=== PATIENT | female | born 1950 | race Caucasian/White ===

== ENCOUNTER → 2017-04-27 | Outpatient (CLI) | payer BC ==
[2017-04-27 09:07] LABS: INR 1.1 (<1.2); Prothrombin Time 11.4 sec (9.0-12.0)
[2017-04-27 09:15] LABS: Calcium 9.7 mg/dL (8.4-10.2); Potassium 4.7 mmol/L (3.5-5.1); Total Bilirubin 0.7 mg/dL (0.2-1.3); Total Protein 7.7 g/dL (6.3-8.2)
[2017-04-27 09:27] LABS: Basophils % (A) 1 %; CH 29.5; CHCM 33.3; Eosinophils # (A) 0.1 k/uL (0-0.7); Eosinophils % (A) 3 %; HCT 37.2 % (34.0-46.0); HGB 12.6 gm/dL (11.4-16.0); Luc # (Auto) 0.07; Luc % (Auto) 2; Lymphocytes # (A) 0.7 k/uL (1.0-4.8); Lymphocytes % (A) 21 %; MCH 30.3 pg (25.0-35.0); MCV 89.1 fL (80.0-100.0); Mean Platelet Volume 8.8; Monocytes # (A) 0.2 k/uL (0-1.0); Monocytes % (A) 5 %; Neutrophils # (A) 2.3 k/uL (1.3-7.7); Neutrophils % (A) 69 %; RBC 4.18 m/uL (3.80-5.40); RDW 13.6 % (11.5-15.5); WBC 3.4 k/uL (3.8-10.6); WBC (Perox) 3.66
[2017-04-27 10:01] LABS: Manual Review Performed
[2017-04-27 10:02] LABS: RBC Morphology Normal
== END | disposition home or self-care (01) ==
LOC: LABWHC1 08:31
PROVIDERS: ATTEND Internal Medicine Gastroenterology
DX: K74.60 Unspecified cirrhosis of liver (principal)
CPT/HCPCS: 36415; 80053; 82105; 85025; 85610

== ENCOUNTER → 2018-05-30 | Outpatient (CLI) | payer BC ==
--- NOTE | 2018-05-30 09:23 | US ---
EXAMINATION TYPE: US portal vein DATE OF EXAM: 05/30/2018 COMPARISON: Liver MRI 09/24/2016, CT 07/27/2016, US 05/20/2014 CLINICAL HISTORY: K74.60 Unspecified cirrhosis of liver. EXAM MEASUREMENTS: Liver Length: 14.4 cm Gallbladder Wall: 0.2 cm CBD: 0.5 cm Right Kidney: 10.3 x 4.8 x 5.5 cm ANATOMY: Pancreas: Obscured by bowel gas, visualized portions wnl Liver: Normal size and contour. No masses visualized Color flow patency within the portal vein: Yes Portal Vein Flow: Hepatopetal Gallbladder: Stone visualized Evidence for sonographic Prince's sign: No CBD: wnl Right Kidney: No hydronephrosis, no cystic or solid mass visualized Ascites noted? No IMPRESSION: Patent portal vein, hepatopedal flow. Cholelithiasis. Limited exam.
== END | disposition home or self-care (01) ==
LOC: RADUSWWP 08:03
PROVIDERS: ATTEND Internal Medicine Gastroenterology
DX: K74.60 Unspecified cirrhosis of liver (principal)
CPT/HCPCS: 93976

== ENCOUNTER → 2018-09-07 | Outpatient (CLI) | payer BC ==
--- NOTE | 2018-09-07 08:18 | MR ---
EXAMINATION TYPE: MR shoulder LT wo con DATE OF EXAM: 09/07/2018 COMPARISON: This radiograph dated 03/08/2016 HISTORY: Unspecified Rot Cuff Tear or Rupture of Left Shoulder TECHNIQUE: Multiplanar, multisequence imaging of the left shoulder is performed without contrast. FINDINGS: Rotator Cuff: There is a complete tear of the supraspinatus with 3.8 cm retraction of the myotendinou s junction and distal frayed fibers. There is narrowing of the subacromial space measuring 1.5 mm bet ween the acromion and high riding humeral head. There is undulation of the retracted supraspinatus te ndon and muscular atrophy. There is a 0.5 x 0.8 cm intrasubstance tear of the subscapularis at the myotendinous junction and par tial-thickness 1.2 x 1.4 cm bursal surface tear also at the myotendinous junction. There is fraying o f the distal fibers with punctate perforations and signal heterogeneity indicative of moderate tendin opathy. Increased signal seen of the distal tendon and insertional fibers of the teres minor compatible with mild tendinopathy. The subscapularis appears of unremarkable signal and muscular volume. Acromioclavicular Joint: There is mild acromioclavicular arthropathy with marginal osteophyte, capsul ar hypertrophy and joint space narrowing. Glenohumeral Joint: There is a high riding humeral head secondary to the rotator cuff tear. There is mild glenohumeral joint space narrowing and small marginal osteophytes of the humeral head compatible with mild arthropathy. The inferior posterior humeral head has a concave appearance without pulmonar y edema likely sequela of prior Hill-Sachs deformity. Labrum: There is a detached tear of the anterior inferior glenoid labrum with 5 mm adjacent paralabra l cyst. Biceps Tendon: Only few frayed fibers versus chronic blood products are seen within the bicipital precious ove. There appears to be a complete tear of the long head of the biceps with frayed fibers seen more distally. Bone marrow signal: No focal abnormal marrow signal is appreciated. Other: There is a small noncomplex joint effusion of the shoulder. IMPRESSION: 1. Complete tear of the supraspinatus with 3.8 cm retraction, undulation of the myotendinous junction and distal frayed fibers, and muscular atrophy. 2. Complete tear of the long head of the biceps with only a few diminutive fibers remaining in the bi cipital groove versus chronic blood products. 3. Detached tear of the anterior inferior glenoid labrum with associated 5 mm paralabral cyst. 4. 5 x 8 mm intrasubstance tear of the infraspinatus and partial-thickness bursal surface 1.2 x 1.4 c m tear of the infraspinatus with associated moderate tendinopathy. 5. Mild tendinopathy of the teres minor. 6. Small noncomplex joint effusion. 7. High riding humeral head from the previously discussed rotator cuff tear with mild glenohumeral ar thropathy and acromioclavicular arthropathy. 8. Posterior humeral head deformity likely sequela of prior Hill-Sachs impaction fracture with no cur rent bone marrow edema.
== END ==
LOC: RADMRIMAIN 06:34
PROVIDERS: ATTEND Internal Medicine Rheumatology
DX: M75.122 Complete rotator cuff tear or rupture of left shoulder, not specified as traumatic (principal); S43.492A Other sprain of left shoulder joint, initial encounter; S46.812A Strain of other muscles, fascia and tendons at shoulder and upper arm level, left arm, initial encounter; M75.92 Shoulder lesion, unspecified, left shoulder; M25.412 Effusion, left shoulder; M19.012 Primary osteoarthritis, left shoulder; M21.922 Unspecified acquired deformity of left upper arm

== ENCOUNTER → 2018-11-16 | Outpatient (CLI) | payer BC ==
[2018-11-16 08:34] LABS: Basophils % (A) 1 %; Eosinophils # (A) 0.1 k/uL (0-0.7); Eosinophils % (A) 3 %; HCT 38.1 % (34.0-46.0); HGB 12.1 gm/dL (11.4-16.0); Lymphocytes # (A) 0.6 k/uL (1.0-4.8); Lymphocytes % (A) 17 %; MCH 29.4 pg (25.0-35.0); MCHC 31.8 g/dL (31.0-37.0); MCV 92.5 fL (80.0-100.0); Mean Platelet Volume 8.1; Monocytes # (A) 0.3 k/uL (0-1.0); Monocytes % (A) 7 %; Neutrophils # (A) 2.5 k/uL (1.3-7.7); Neutrophils % (A) 70 %; RBC 4.12 m/uL (3.80-5.40); RDW 13.4 % (11.5-15.5); WBC 3.6 k/uL (3.8-10.6)
[2018-11-16 08:51] LABS: INR 0.9 (<1.2); Prothrombin Time 10.1 sec (9.0-12.0)
[2018-11-16 10:22] LABS: Platelet Count 77 k/uL (150-450)
[2018-11-16 16:51] LABS: Albumin 4.2 g/dL (3.80-4.90); Albumin/Globulin Ratio 1.75 (1.60-3.17); Anion Gap 9.9 mmol/L (4.00-12.00); Calcium 9.2 mg/dL (8.7-10.3); Carbon Dioxide 28.1 mmol/L (21.6-31.8); Globulin 2.4 g/dL (1.6-3.3); Potassium 4.2 mmol/L (3.5-5.5); Total Bilirubin 0.6 mg/dL (0.2-1.2); Total Protein 6.6 g/dL (6.2-8.2)
== END | disposition home or self-care (01) ==
LOC: LABWHC1 07:27
PROVIDERS: ATTEND Internal Medicine Gastroenterology
DX: K74.60 Unspecified cirrhosis of liver (principal)
CPT/HCPCS: 36415; 80053; 82105; 85025; 85610

== ENCOUNTER 2019-04-19 21:32 | Emergency (ER) | payer BC ==
[2019-04-19 21:54] VITALS: BP 160/94; PULSE 86; RESP 16; TEMP 98.4
[2019-04-19] MEDS ORDERED: ACET/COD 300 MG/30 MG STARTER PACK 6 TAB BTL PO STA (23:34)
--- NOTE | 2019-04-19 23:34 | ED ---
General Adult HPI - General Chief complaint: Dental/Oral Stated complaint: Dental/Jaw pain Time Seen by Provider: 04/19/19 22:18 Source: patient, RN notes reviewed, old records reviewed Mode of arrival: ambulatory Limitations: no limitations - History of Present Illness Initial comments: 68-year-old female patient presents ED with right dental pain. Patient reports that she was chewing on a cookie and started drinking pain in her jaw. Patient denies any other complaints at this time. Denies any chest pain shortness with abdominal pain, nausea vomiting or diarrhea. Systemic: Pt denies fatigue, fever/chills, rash. Pt denies weakness, night sweats, weight loss. Neuro: Pt denies headache, visual disturbances, syncope or pre-syncope. HEENT: Pt denies ocular discharge or irritation, otalgia, rhinorrhea, pharyngitis or notable lymphadenopathy. Cardiopulmonary: Pt denies chest pain, SOB, heart palpitations, dyspnea on exertion. Abdominal/GI: Pt denies abdominal pain, n/v/d. : Pt denies dysuria, burning w/ urination, frequency/urgency. Denies new onset urinary or bowel incontinence. MSK: Pt denies myalgia, loss of strength or function in extremities. Neuro: Pt denies new onset weakness, paresthesias. - Related Data Home Medications Medication Instructions Recorded Confirmed Acetaminophen [Tylenol] 1,000 mg PO DAILY PRN 03/08/16 07/06/16 Etanercept [Enbrel] 50 mg SQ BOLES 03/08/16 07/06/16 Folic Acid 1 mg PO DAILY 03/08/16 07/06/16 Levothyroxine Sodium [Synthroid] 112 mcg PO DAILY 03/08/16 07/06/16 Simvastatin [Zocor] 20 mg PO HS 03/08/16 07/06/16 metFORMIN HCL [Glucophage] 500 mg PO AC-TID 07/06/16 07/06/16 Previous Rx's Medication Instructions Recorded Penicillin V Potassium [Pen Vee K] 500 mg PO QID 4 Days #28 tablet 04/19/19 Allergies Allergy/AdvReac Type Severity Reaction Status Date / Time shellfish derived [Shellfish] Allergy Anaphylaxis Verified 04/19/19 21:54 Review of Systems ROS Statement: Those systems with pertinent positive or pertinent negative responses have been documented in the HPI. ROS Other: All systems not noted in ROS Statement are negative. Past Medical History Past Medical History: Asthma, Diabetes Mellitus, Hyperlipidemia, Hypertension, Rheumatoid Arthritis (RA), Thyroid Disorder Additional Past Medical History / Comment(s): anemia, lt shoulder pain, History of Any Multi-Drug Resistant Organisms: None Reported Past Surgical History: Breast Surgery, Orthopedic Surgery, Tubal Ligation Additional Past Surgical History / Comment(s): rt shoulder, Past Anesthesia/Blood Transfusion Reactions: Previous Problems w/ Anesthesia Additional Past Anesthesia/Blood Transfusion Reaction / Comment(s): difficulty breathing Past Psychological History: No Psychological Hx Reported Smoking Status: Never smoker Past Alcohol Use History: None Reported Past Drug Use History: None Reported - Past Family History Son(s) Family Medical History: Diabetes Mellitus Mother Family Medical History: Cancer Additional Family Medical History / Comment(s): lymphoma General Exam - General Exam Comments Initial Comments: Constitutional: NAD, AOX3, Pt has pleasant affect. HEENT: NC/AT, trachea midline, neck supple, no lymphadenopathy. Posterior pharynx non erythematous, without exudates. External ears appear normal, without discharge. Mucous membranes moist. Eyes PERRLA, EOM intact. There is no scleral icterus. No pallor noted. Dental exam revealed moderate dentition, no drainable abscess, erythema or discharge noted. Cardiopulmonary: RRR, no murmurs, rubs or gallops, no JVD noted. Lungs CTAB in anterior and posterior roach. No peripheral edema. Abdominal exam: Abdomen soft and non-distended. Abdomen non-tender to palpation in all 4 quadrants. Bowel sounds active in LLQ. No hepatosplenomegaly. No ecchymosis Neuro: CN II-XII grossly intact. No nuchal rigidity. No raccon eyes, no hutton sign, no hemotympanum. No cervical spinal tenderness. MSK: No posterior calf tenderness bilaterally, homans sign negative bilaterally. Posterior tibialis and radial pulse +2 bilaterally. Sensation intact in upper and lower extremities. Full active ROM in upper and lower extremities, 5/5 stregnth. Limitations: no limitations Course Vital Signs 04/19/19 21:51 Temperature 98.4 F Pulse Rate 86 Respiratory 16 Rate Blood Pressure 160/94 O2 Sat by Pulse 95 Oximetry Medical Decision Making - Medical Decision Making 68 old female patient presents ED with dental pain after chweing cookie. Patient vital signs stable , afebrile. Physical exam revealed moderate dentition. Patient will be discharged with Tylenol 3 starter pack, penicillin. Patient will follow-up with dentist in 1-2 days. Patient return to ER if condition worsens. Case discussed with Dr. Laboy. Disposition Clinical Impression: Pain, dental Disposition: HOME SELF-CARE Condition: Stable Instructions (If sedation given, give patient instructions): Toothache (ED) Additional Instructions: Patient to adhere to previously discussed treatment plan and will take medicat ion(s) as directed. Patient to follow up with PCP in 1-2 days. Patient to return to ED if symptoms do not improve. Follow-up with primary care provider and dentist in 1-2 days. Return to ER if condition worsens in any way. Prescriptions: Penicillin V Potassium [Pen Vee K] 500 mg PO QID 4 Days #28 tablet Is patient prescribed a controlled substance at d/c from ED?: No Referrals: Silvio Munson MD [Primary Care Provider] - 1-2 days
== END 2019-04-19 23:47 | disposition home or self-care (01) ==
LOC: EC 21:32
DX: K08.89 Other specified disorders of teeth and supporting structures (principal); E11.9 Type 2 diabetes mellitus without complications; D64.9 Anemia, unspecified; E78.5 Hyperlipidemia, unspecified; I10 Essential (primary) hypertension; M06.9 Rheumatoid arthritis, unspecified; E07.9 Disorder of thyroid, unspecified; Z79.84 Long term (current) use of oral hypoglycemic drugs; Z79.890 Hormone replacement therapy; Z79.899 Other long term (current) drug therapy; Z91.013 Allergy to seafood
CPT/HCPCS: 99283

== ENCOUNTER → 2019-05-15 | Outpatient (CLI) | payer BC ==
[2019-05-15 17:30] LABS: Basophils % (A) 1 %; Eosinophils # (A) 0.1 k/uL (0-0.7); Eosinophils % (A) 2 %; HCT 33.6 % (34.0-46.0); HGB 11.4 gm/dL (11.4-16.0); Lymphocytes % (A) 25 %; MCH 29.5 pg (25.0-35.0); MCHC 33.9 g/dL (31.0-37.0); MCV 87.1 fL (80.0-100.0); Mean Platelet Volume 8.3; Monocytes # (A) 0.3 k/uL (0-1.0); Monocytes % (A) 6 %; Neutrophils # (A) 2.5 k/uL (1.3-7.7); Neutrophils % (A) 63 %; Platelet Count 104 k/uL (150-450); RBC 3.86 m/uL (3.80-5.40); RDW 14.4 % (11.5-15.5)
[2019-05-15 17:36] LABS: Prothrombin Time 10.7 sec (9.0-12.0)
[2019-05-16 01:01] LABS: African American GFR (CKD) 60.6 (60.0-200.0); Albumin 4.5 g/dL (3.80-4.90); Albumin/Globulin Ratio 1.88 (1.60-3.17); Anion Gap 11.2 mmol/L (4.00-12.00); BUN/Creat Ratio 20.91 Ratio (12.00-20.00); Calcium 9.2 mg/dL (8.7-10.3); Carbon Dioxide 25.8 mmol/L (21.6-31.8); Globulin 2.4 g/dL (1.6-3.3); Potassium 4.4 mmol/L (3.5-5.5); Total Bilirubin 0.4 mg/dL (0.2-1.2); Total Protein 6.9 g/dL (6.2-8.2)
== END | disposition home or self-care (01) ==
LOC: LABWHC1 16:39
PROVIDERS: ATTEND Internal Medicine Gastroenterology
DX: K74.60 Unspecified cirrhosis of liver (principal)
CPT/HCPCS: 36415; 80053; 82105; 85025; 85610

== ENCOUNTER → 2020-06-02 | Outpatient (CLI) | payer BC ==
--- NOTE | 2020-06-02 07:30 | US ---
EXAMINATION TYPE: US liver DATE OF EXAM: 06/02/2020 COMPARISON: US 05/30/18, CT 07/27/16 CLINICAL HISTORY: K74.60 Unspecifed cirrhosis of liver. EXAM MEASUREMENTS: Liver Length: 15.0 cm Gallbladder Wall: 0.2 cm CBD: 0.3 cm Right Kidney: 10.7 x 5.2 x 4.7 cm Pancreas: No masses seen Liver: No masses seen Gallbladder: Small gallstones (as seen previously) Evidence for sonographic Prince's sign: No CBD: wnl Right Kidney: No hydronephrosis or masses seen IMPRESSION: Small gallstones noted.
== END | disposition home or self-care (01) ==
LOC: RADUSWWP 06:55
PROVIDERS: ATTEND Internal Medicine Gastroenterology
DX: K80.20 Calculus of gallbladder without cholecystitis without obstruction (principal); K74.60 Unspecified cirrhosis of liver
CPT/HCPCS: 76705

== ENCOUNTER → 2021-05-31 | Outpatient (CLI) | payer MEDICARE ==
--- NOTE | 2021-05-31 08:29 | US ---
EXAMINATION TYPE: US abdomen limited DATE OF EXAM: 05/31/2021 COMPARISON: US's CLINICAL HISTORY: K74.60 UNSPECIFIED CIRRHOSIS OF LIVER. EXAM MEASUREMENTS: Liver Length: 13.1 cm Gallbladder Wall: 0.2 cm CBD: 0.4 cm Right Kidney: 10.1 x 4.8 x 5.8 cm Pancreas: visualized portions wnl Liver: wnl Gallbladder: tiny stone noted Evidence for sonographic Prince's sign: No CBD: wnl Right Kidney: No hydronephrosis or masses seen IMPRESSION: Small incidental gallstone.
== END | disposition home or self-care (01) ==
LOC: RADUSWWP 07:34
PROVIDERS: ATTEND Internal Medicine Gastroenterology
DX: K74.60 Unspecified cirrhosis of liver (principal); K80.20 Calculus of gallbladder without cholecystitis without obstruction
CPT/HCPCS: 76705

== ENCOUNTER 2021-11-25 17:00 | Emergency (ER) | payer MEDICARE ==
[2021-11-25 17:14] VITALS: PULSE 63; RESP 18; TEMP 98.7
[2021-11-25] MEDS ORDERED: ONDANSETRON 4 MG/2 ML VIAL IVP STA (17:31)
[2021-11-25] MEDS ORDERED: SODIUM CHLORIDE 0.9% 500 ML 500 ML IV STA (17:31)
--- NOTE | 2021-11-25 17:33 | ED ---
General Adult HPI - General Chief complaint: Fall Stated complaint: Fall Time Seen by Provider: 11/25/21 17:06 Source: patient, EMS Mode of arrival: EMS Limitations: no limitations - History of Present Illness Initial comments: Dictation was produced using [employer] dictation software. please excuse any grammatical, word or spelling errors. Chief Complaint: This 71-year-old female presents to emergency department after fall History of Present Illness: Patient is a 71-year-old female she suffered a fall 50 minutes prior to arrival. Patient states she slipped on ice during the bad weather conditions. She states she fell forward landing on her left knee and hitting her face. She denies any loss of consciousness however that was unwitnessed. Patient has not taken anticoagulation medications. EMS was called patient is brought to the ER. She was placed in a cervical collar. Patient weighs of knee pain, facial pain and neck pain. The ROS documented in this emergency department record has been reviewed and confirmed by me. Those systems with pertinent positive or negative responses have been documented in the HPI. All other systems are other negative and/or noncontributory. PHYSICAL EXAM: General Impression: Alert and oriented x3, not in acute distress HEENT: Ecchymosis to the left eyebrow ridge, extra-ocular movements intact, pupils equal and reactive to light bilaterally, mucous membranes moist, no nasal septal hematoma Cardiovascular: Heart regular rate and rhythm Chest: Able to complete full sentences, no retractions, no tachypnea Abdomen: abdomen soft, non-tender, non-distended, no organomegaly Musculoskeletal: Pulses present and equal in all extremities, no peripheral edema, abrasion to the left anterior knee with palpatory tenderness over the anterior proximal tibia Motor: no focal deficits noted Neurological: CN II-XII grossly intact, no focal motor or sensory deficits noted Skin: Intact with no visualized rashes Psych: Normal affect and mood ED course: 71-year-old female presents emergency department after fall. She has had trauma and left knee trauma. Patient is not an adequate evaluation medications. Fall was ground-level. Vital signs upon arrival are within acceptable limits. Return evaluation obtained. CBC, cardiac panel, metabolic panel is within acceptable limits. There is slight degree of mild acidosis without any anion gap. Computed tomography scan of the face no facial fractures there does appear to be a left frontal periorbital scalp hematoma. Computed tomography scan of the brain shows large cranial processes. Computed tomography scan of the C- spine shows no acute traumatic issues. Chest x-ray is nonacute, pelvis x-rays negative. Knee x-ray shows no acute pathology. There does appear to be patella femoral osteotomy changes. She is reevaluated at 7:50 PM. She is feeling much better. She did have some nausea 30 minutes prior and was given Reglan. She feels well to go home. Daughter is at the bedside and will monitor patient overnight. Advised follow- up with primary care doctor. Patient given starter pack for Zofran and Tylenol number threes. EKG interpretation: Ventricular rate 72, sinus rhythm,. 156, QRS eyes, QTC 428. No HI prolongation, no QTC prolongation, no ST or T-wave changes noted. EKG compared to 03/08/2016 showing no changes. Overall, this EKG is unremarkable - Related Data Home Medications Medication Instructions Recorded Confirmed Acetaminophen [Tylenol] 1,000 mg PO DAILY PRN 03/08/16 07/06/16 Etanercept [Enbrel] 50 mg SQ BOLES 03/08/16 07/06/16 Folic Acid 1 mg PO DAILY 03/08/16 07/06/16 Levothyroxine Sodium [Synthroid] 112 mcg PO DAILY 03/08/16 07/06/16 Simvastatin [Zocor] 20 mg PO HS 03/08/16 07/06/16 metFORMIN HCL [Glucophage] 500 mg PO AC-TID 07/06/16 07/06/16 Previous Rx's Medication Instructions Recorded Penicillin V Potassium [Pen Vee K] 500 mg PO QID 4 Days #28 tablet 04/19/19 Allergies Allergy/AdvReac Type Severity Reaction Status Date / Time shellfish derived [Shellfish] Allergy Anaphylaxis Verified 04/19/19 21:54 Review of Systems ROS Statement: Those systems with pertinent positive or pertinent negative responses have been documented in the HPI. ROS Other: All systems not noted in ROS Statement are negative. Past Medical History Past Medical History: Asthma, Diabetes Mellitus, Hyperlipidemia, Hypertension, Rheumatoid Arthritis (RA), Thyroid Disorder Additional Past Medical History / Comment(s): anemia, lt shoulder pain, History of Any Multi-Drug Resistant Organisms: None Reported Past Surgical History: Breast Surgery, Orthopedic Surgery, Tubal Ligation Additional Past Surgical History / Comment(s): rt shoulder, Past Anesthesia/Blood Transfusion Reactions: Previous Problems w/ Anesthesia Additional Past Anesthesia/Blood Transfusion Reaction / Comment(s): difficulty breathing Past Psychological History: No Psychological Hx Reported Past Alcohol Use History: None Reported Past Drug Use History: None Reported - Past Family History Son(s) Family Medical History: Diabetes Mellitus Mother Family Medical History: Cancer Additional Family Medical History / Comment(s): lymphoma General Exam Limitations: no limitations Course Vital Signs 11/25/21 17:05 Temperature 98.7 F Pulse Rate 63 Respiratory 18 Rate Blood Pressure 176/99 O2 Sat by Pulse 100 Oximetry Medical Decision Making - Lab Data Result diagrams: 11/25/21 17:49 11/25/21 17:49 Lab Results 11/25/21 11/25/21 11/25/21 Range/Units 17:49 17:49 17:49 WBC 6.5 (3.8-10.6) k/uL RBC 4.39 (3.80-5.40) m/uL Hgb 13.6 (11.4-16.0) gm/dL Hct 39.9 (34.0-46.0) % MCV 90.9 (80.0-100.0) fL MCH 31.0 (25.0-35.0) pg MCHC 34.1 (31.0-37.0) g/dL RDW 13.4 (11.5-15.5) % Plt Count 97 L (150-450) k/uL MPV 9.2 Neutrophils % 77 % Lymphocytes % 14 % Monocytes % 5 % Eosinophils % 2 % Basophils % 0 % Neutrophils # 5.0 (1.3-7.7) k/uL Lymphocytes # 0.9 L (1.0-4.8) k/uL Monocytes # 0.3 (0-1.0) k/uL Eosinophils # 0.1 (0-0.7) k/uL Basophils # 0.0 (0-0.2) k/uL PT 10.5 (9.0-12.0) sec INR 1.0 (<1.2) APTT 22.6 (22.0-30.0) sec Sodium 139 (137-145) mmol/L Potassium 4.0 (3.5-5.1) mmol/L Chloride 108 H (98-107) mmol/L Carbon Dioxide 19 L (22-30) mmol/L Anion Gap 12 mmol/L BUN 28 H (7-17) mg/dL Creatinine 1.19 H (0.52-1.04) mg/dL Est GFR (CKD-EPI)AfAm 54 (>60 ml/min/1.73 sqM) Est GFR (CKD-EPI)NonAf 47 (>60 ml/min/1.73 sqM) Glucose 136 H (74-99) mg/dL Calcium 9.8 (8.4-10.2) mg/dL Disposition Clinical Impression: Fall Disposition: HOME SELF-CARE Condition: Good Instructions (If sedation given, give patient instructions): Fall Prevention for Older Adults (ED) Is patient prescribed a controlled substance at d/c from ED?: No Referrals: Silvio Munson MD [Primary Care Provider] - 1-2 days
[2021-11-25 17:58] LABS: Basophils % (A) 0 %; Eosinophils # (A) 0.1 k/uL (0-0.7); Eosinophils % (A) 2 %; HCT 39.9 % (34.0-46.0); HGB 13.6 gm/dL (11.4-16.0); Lymphocytes # (A) 0.9 k/uL (1.0-4.8); Lymphocytes % (A) 14 %; MCHC 34.1 g/dL (31.0-37.0); MCV 90.9 fL (80.0-100.0); Mean Platelet Volume 9.2; Monocytes # (A) 0.3 k/uL (0-1.0); Monocytes % (A) 5 %; Neutrophils % (A) 77 %; RBC 4.39 m/uL (3.80-5.40); RDW 13.4 % (11.5-15.5); WBC 6.5 k/uL (3.8-10.6)
[2021-11-25 17:59] LABS: Platelet Count 97 k/uL (150-450)
[2021-11-25 18:09] LABS: Partial Thromboplastin Time 22.6 sec (22.0-30.0); Prothrombin Time 10.5 sec (9.0-12.0)
[2021-11-25 18:20] LABS: Calcium 9.8 mg/dL (8.4-10.2)
--- NOTE | 2021-11-25 18:57 | CT ---
EXAMINATION TYPE: CT brain cspine wo con, CT facial bones wo con CT DLP: 1093.1 mGycm, Automated exposure control for dose reduction was used. DATE OF EXAM: 11/25/2021 6:15 PM COMPARISON: None.. CLINICAL INDICATION:Female, 71 years old with history of fall; TECHNIQUE: Brain: Multiple axial CT images of the brain were obtained without IV contrast. Cspine: Axial CT images from the skull base to the inferior aspect of T2 we obtained without intraven ous contrast. Coronal and sagittal reformatted images were also reviewed. Facial bone: Multiple axial CT see the facial bones were obtained without IV contrast. The plan refor mats were submitted for review. FINDINGS: Brain: Extra-axial spaces: No abnormal extra-axial fluid collections. Ventricular system: Within normal limits Cerebral parenchyma: No acute intraparenchymal hemorrhage or mass effect. The severino-white junction is well differentiated. Cerebellum: Unremarkable. Mass effect: No evidence of midline shift. Intracranial vasculature: unremarkable Soft tissues: Scalp hematoma measuring 49 x 12 x 29 mm superior to the left superior orbital ridge ar ound the left eye. Calvarium/osseous structures: No depressed skull fracture. Paranasal sinuses and mastoid air cells: Clear. Visualized orbits: Orbital contents are intact. Cervical spine: Fracture: None. Osseous structures: Multilevel degenerative disc disease changes with endplate spurring and disc oste ophyte complex's. Vertebral alignment: Within normal limits. Spinal canal/Neural Foramina: No evidence of significant spinal canal narrowing. No evidence of signi ficant neural foramina narrowing. Neck soft tissues: Prevertebral soft tissues are within normal limits. Other: The airway is patent. The lung apices are clear. CT Facial: There is no evidence of facial fracture, subluxation, dislocation, or significant soft tissue swellin g. The orbital contents are unremarkable.The temporal-mandibular joints appear symmetric. The visuali zed portion of the paranasal sinuses appear clear. IMPRESSION: 1. No acute intracranial process or facial bone fracture. 2. Left frontal and periorbital scalp hematoma. 3. No evidence of cervical spine fracture. 4. Mild multilevel degenerative disc disease.
--- NOTE | 2021-11-25 19:00 | XR ---
EXAMINATION TYPE: XR chest 1V portable DATE OF EXAM: 11/25/2021 6:14 PM COMPARISON:Chest radiographs from 03/08/2016 TECHNIQUE: XR chest 1V portable Frontal view of the chest. CLINICAL INDICATION:Female, 71 years old with history of fall; FINDINGS: Patient is rotated. Lungs/Pleura: There is no evidence of pleural effusion, focal consolidation, or pneumothorax. Pulmonary vascularity: Unremarkable. Heart/mediastinum: Cardiomediastinal silhouette is unremarkable. Musculoskeletal: No acute osseous pathology. IMPRESSION: No acute cardiopulmonary disease/process, given patient rotation not significantly changed from prior ..
--- NOTE | 2021-11-25 19:01 | XR ---
EXAMINATION TYPE: XR pelvis AP view DATE OF EXAM: 11/25/2021 6:14 PM INDICATION: Patient age:Female; 71 years old; Reason for study: fall. COMPARISON: CT abdomen pelvis 09/14/2010 TECHNIQUE: The pelvis was examined in a single projection. FINDINGS: There is no evidence of fracture or dislocation. There is no soft tissue abnormality. Pelv ic phleboliths are present. Multilevel degenerative changes of the lower spine. IMPRESSION: No acute osseous pathology.
--- NOTE | 2021-11-25 19:02 | XR ---
EXAMINATION TYPE: XR knee complete LT DATE OF EXAM: 11/25/2021 6:13 PM INDICATION: Patient age:Female; 71 years old; Reason for study: fall; COMPARISON: None. TECHNIQUE: The Left knee(s) was examined in AP lateral and oblique projections. FINDINGS: Mild degenerative changes of the tibial plateau severe changes of popliteal femoral joint . No evidence of any acute osseous pathology, joint space narrowing, soft tissue swelling, or joint e ffusion is noted. IMPRESSION: 1. No acute osseous pathology. 2. Severe patellofemoral osteoarthritic changes.
[2021-11-25] MEDS ORDERED: METOCLOPRAMIDE 5 MG/ML 2 ML VIAL IVP STA (19:12)
[2021-11-25] MEDS ORDERED: ACET/COD 300 MG/30 MG STARTER PACK 6 TAB BTL PO STA (19:53)
[2021-11-25] MEDS ORDERED: ONDANSETRON 4 MG ODT STARTER PACK 2 TAB BTL PO STA (19:53)
[2021-11-25 20:10] VITALS: BP 170/98
== END 2021-11-25 20:24 | disposition home or self-care (01) ==
LOC: EC 17:00
DX: M25.562 Pain in left knee (principal); J45.909 Unspecified asthma, uncomplicated; E11.9 Type 2 diabetes mellitus without complications; E78.5 Hyperlipidemia, unspecified; I10 Essential (primary) hypertension; M06.9 Rheumatoid arthritis, unspecified; E07.9 Disorder of thyroid, unspecified; Z79.84 Long term (current) use of oral hypoglycemic drugs; Z98.51 Tubal ligation status
CPT/HCPCS: 99284; 96374; 96375; 36415; 93005; 80048; 85025; 85610; 85730; 72170; 73562; 71045; 72125; 70486; 70450; J2765; J2405; S0119

== ENCOUNTER → 2022-01-21 | Outpatient (CLI) | payer MEDICARE, OTHER ==
--- NOTE | 2022-01-21 08:52 | US ---
EXAMINATION TYPE: US liver DATE OF EXAM: 01/21/2022 COMPARISON: MRI liver 2016 CLINICAL HISTORY: K74.60 UNSPECIFIED CIRRHOSIS OF LIVER. cirrhosis, no symptoms EXAM MEASUREMENTS: Liver Length: 14.0 cm Gallbladder Wall: 0.2 cm CBD: 0.4 cm Right Kidney: 9.7 x 4.8 x 5.1 cm Pancreas: wnl Liver: wnl Gallbladder: 0.5cm Evidence for sonographic Prince's sign: no CBD: wnl Right Kidney: wnl Visualized pancreas appears within normal limits. Visualized liver is slightly heterogeneous but show s no worrisome mass or ductal dilatation. No surrounding ascites. Gallbladder shows 5 mm nonmobile no nshadowing structure possible small polyp. Right kidney shows no hydronephrosis. IMPRESSION: No worrisome intrahepatic mass or intrahepatic ductal dilatation is seen.
== END | disposition home or self-care (01) ==
LOC: RADUSWWP 08:09
PROVIDERS: ATTEND Internal Medicine Gastroenterology
DX: K74.60 Unspecified cirrhosis of liver (principal)
CPT/HCPCS: 76705

== ENCOUNTER → 2022-04-26 | Outpatient (CLI) | payer MEDICARE, OTHER ==
--- NOTE | 2022-04-27 09:23 | MM ---
Reason for Exam: Screening (asymptomatic). Last mammogram was performed 17 year(s) and 4 month(s) ago. Patient History: Menarche at age 14. First Full-Term at age 30. Postmenopausal. Excisional Biopsy on the Left side. Risk Values: Vy 5 year model risk: 2.3%. NCI Lifetime model risk: 6.9%. Prior Study Comparison: 12/04/2003 Bilateral Screening Mammogram, [facility]. 12/26/2003 Bilateral Special View Mammogram, [facility]. 01/05/2005 Bilateral Screening Mammogram, [facility]. Tissue Density: The breast tissue is heterogeneously dense. This may lower the sensitivity of mammography. Findings: Analyzed By CAD. There is no suspicious group of microcalcifications or new suspicious mass in either breast. Postoperative distortion left breast. Overall Assessment: Benign, BI-RAD 2 Management: Screening Mammogram of both breasts in 1 year. A clinical breast exam by your physician is recommended on an annual basis and results should be correlated with mammographic findings. Electronically signed and approved by: Jitendra Spaulding M.D. Radiologis
== END | disposition home or self-care (01) ==
LOC: RADMAMWWP 09:59
PROVIDERS: ATTEND Family Medicine
DX: Z12.31 Encounter for screening mammogram for malignant neoplasm of breast (principal); Z78.0 Asymptomatic menopausal state
CPT/HCPCS: 77063; 77067

== ENCOUNTER → 2022-10-13 | Outpatient (CLI) | payer MEDICARE, OTHER ==
--- NOTE | 2022-10-13 16:30 | BD ---
EXAMINATION TYPE: Axial Bone Density DATE OF EXAM: 10/13/2022 COMPARISON: BASELINE CLINICAL HISTORY: 72 years year old Female. ICD-10 CODE: Z13.820 SCREENING FOR OSTEOPOROSIS Height: 67" Weight: 156.5 FRAX RISK QUESTIONS: Alcohol (3 or more units per day): NO Family History (Parent hip fracture): NO Glucocorticoids (More than 3mos): YES, APPROX. 8 YEARS AGO (Ex: prednisone, prednisolone, methylprednisolone, dexamethasone, and hydrocortisone). History of Fracture in Adulthood: YES, TOE APPROX 20 YEARS AGO Secondary Osteoporosis: 1. Type 1 Diabetes: NO 2. Hyperthyroidism: NO 3. Menopause before 45: NO 4. Malnutrition: NO 5. Chronic liver disease: YES, PER HER DOC CHIROSIS OF LIVER Rheumatoid Arthritis: YES Current Tobacco Use: NO RISK FACTORS HISTORY OF: Hip Fracture (Right/Left): NO Spine Fracture: NO History of Wrist Fracture: NO Surgery to Spine/Hip(right/left)/Wrist (right/left): BILATERAL CARPAL TUNNEL SURG Family History of Osteoporosis: NO Active: NO Diet low in dairy products/other sources of calcium: YES Postmenopausal woman: YES Lost more than 2 inches in height since high school: YES Frequent falls: NO Poor Health: GOOD HEALTH Hyperparathyroidism: NO Adrenal Insufficiency: NO MEDICATIONS: Prednisone or other steroids: NO Thyroid Medications: YES Which medication: LEVOTHYROXINE How Long: MANY YEARS Osteoporosis Medications: NO Additional Medications: ORENZIA INFUSIONS FOR RA, LEVOTHYROXINE, METFORMIN FOR TYPE 2 DIABETES, SACHI STEROL MEDS, BLOOD PRESSURE MEDS, DE3 VITAMIN. TYLENOL ON OCCASION, PRESCRIPTION EYE DROPS Additional History: NONE EXAM MEASUREMENTS: Bone mineral densitometry was performed using the [employer]. Bone mineral density as measured about the Lumbar spine is: ----- L1-L4(G/cm2): 1.015 T Score Values are as follows: ----- L1: -1.2 ----- L2: -1.8 ----- L3: -1.1 ----- L4: -1.5 ----- L1-L4: -1.4 BASELINE Bone mineral density about the R hip (g/cm2): 0.848 Bone mineral density about the L hip (g/cm2): 0.830 T Score values are as follows: -----R Neck: -1.5 -----L Neck: -1.4 -----R Total: -1.8 -----L Total: -1.9 BASELINE FRAX%s: The graph provided illustrates a 20.1% chance for a major osteoporotic fx and a 3.2% chance f or the hips probability for fx in 10 years time. IMPRESSION: Osteopenia (T Score between -2.5 and -1). There is slightly increased risk of fracture and the patient may be considered for treatment. Re-Screen 2-5 years. NOTE: T-SCORE=SD OF THE YOUNG ADULT MEAN.
== END | disposition home or self-care (01) ==
LOC: RADBDWWP 14:20
PROVIDERS: ATTEND Family Medicine
DX: Z13.820 Encounter for screening for osteoporosis (principal); M85.89 Other specified disorders of bone density and structure, multiple sites; Z78.0 Asymptomatic menopausal state
CPT/HCPCS: 77080

== ENCOUNTER → 2023-05-08 | Outpatient (CLI) | payer MEDICARE, OTHER ==
--- NOTE | 2023-05-08 10:05 | US ---
EXAMINATION TYPE: US liver DATE OF EXAM: 05/08/2023 COMPARISON: US CLINICAL INDICATION: Female, 72 years old with history of K74.60; Cirrhosis. TECHNIQUE: Multiple sonographic images of the right upper quadrant are obtained. FINDINGS: EXAM MEASUREMENTS: Liver Length: 13.9 cm Gallbladder Wall: 0.20 cm CBD: 0.44 cm Right Kidney: 10.3 x 4.9 x 5.0 cm INSTRUMENT INSTALLER NOTES: Very limited due to gas. Pancreas: Tail was not well seen. Liver: Appears coarse with increased echogenicity. Gallbladder: Hyperechoic focus with posterior shadowing seen: 0.5 x 0.5 x 0.2 cm. Evidence for sonographic Prince's sign: No CBD: Appears wnl Right Kidney: Limited. Hypoechoic area seen lower pole: 0.9 x 0.9 x 0.6 cm. IMPRESSION: 1. Mild nodularity to liver with Coarsened echotexture suggestive of cirrhosis. 2. Cholelithiasis. 3. Right renal cyst.
== END | disposition home or self-care (01) ==
LOC: RADUSWWP 08:44
PROVIDERS: ATTEND Internal Medicine Gastroenterology
DX: K74.60 Unspecified cirrhosis of liver (principal); K80.20 Calculus of gallbladder without cholecystitis without obstruction; N28.1 Cyst of kidney, acquired
CPT/HCPCS: 76705

== ENCOUNTER → 2023-10-18 | Outpatient (CLI) | payer MEDICARE, OTHER ==
--- NOTE | 2023-10-18 13:28 | US ---
EXAMINATION TYPE: US venous doppler duplex LE RT DATE OF EXAM: 10/18/2023 1:03 PM COMPARISON: NONE CLINICAL INDICATION: Female, 73 years old with history of R22.41 LOCALIZED SWELLING, RT LOWER LIMB; F all on September 26, right lower leg pain and swelling. SIDE PERFORMED: Right TECHNIQUE: The lower extremity deep venous system is examined utilizing real time linear array sonog abdifatah with graded compression, doppler sonography and color-flow sonography. VESSELS IMAGED: Common Femoral Vein Deep Femoral Vein Greater Saphenous Vein * Femoral Vein Popliteal Vein Small Saphenous Vein * Proximal Calf Veins (* superficial vessels) Right Leg: Negative for DVT. Phasic flow seen within bilateral common femoral veins. Edema noted in right lower leg. Gave results to Dr. Vaughn. Dr. Vaughn gave patient further instructions. Patient sent home. IMPRESSION: 1. Right lower extremities ultrasound negative for deep venous thrombosis. 2. Right lower extremity superficial edema
== END | disposition home or self-care (01) ==
LOC: RADUSWWP 12:35
PROVIDERS: ATTEND Family Medicine
DX: R60.0 Localized edema (principal)

== ENCOUNTER → 2023-11-21 | Outpatient (CLI) | payer MEDICARE, OTHER ==
--- NOTE | 2023-11-21 16:00 | US ---
EXAMINATION TYPE: US liver DATE OF EXAM: 11/21/2023 COMPARISON: US 05/08/2023 CLINICAL INDICATION: Female, 73 years old with history of K74.60 UNSPECIFIED CIRRHOSIS OF LIVER; Cirr hosis of liver. TECHNIQUE: Multiple sonographic images of the right upper quadrant are obtained. FINDINGS: EXAM MEASUREMENTS: Liver Length: 13.2 cm Gallbladder Wall: 0.25 cm CBD: 0.25 cm Right Kidney: 10.5 x 4.5 x 4.5 cm NEWBORN PHOTOGRAPHER NOTES: *Exam is limited due to gas Pancreas: Tail was obscured by gas. Otherwise, no gross abnormality. Liver: Slightly coarsened echotexture. No focal lesion. Gallbladder: Hyperechoic focus with posterior shadowing seen: 0.7 x 0.7 x 0.5 cm. No hydropic change or surrounding fluid. Evidence for sonographic Prince's sign: No CBD: Portions seen appear wnl Right Kidney: Hypoechoic area seen lower pole: 1.0 x 1.0 x 0.9 cm. ?Kidney appears to have increased echogenicity. No hydronephrosis. IMPRESSION: 1. Slightly coarsened hepatic echotexture may be on a technical basis or could reflect nonspecific he patocellular disease. 2. A 7 mm gallstone. No biliary ductal dilatation. 3. A nonspecific 1.0 cm hypoechoic cortical lesion at the lower pole of the right kidney. This may re present a debris-filled cyst. A small solid mass is not excluded at this time but considered less lik jovanny as a lesion here on 05/08/2023 measured 9 mm. Consider an additional one-year surveillance follow- up. 4. There may be underlying chronic medical renal disease.
== END | disposition home or self-care (01) ==
LOC: RADUSWWP 09:23
PROVIDERS: ATTEND Internal Medicine Gastroenterology
DX: K80.20 Calculus of gallbladder without cholecystitis without obstruction (principal); N28.89 Other specified disorders of kidney and ureter; K76.89 Other specified diseases of liver; K74.60 Unspecified cirrhosis of liver
CPT/HCPCS: 76705

== ENCOUNTER → 2023-11-24 | Outpatient (CLI) | payer MEDICARE, OTHER ==
--- NOTE | 2023-11-25 09:02 | MR ---
EXAMINATION TYPE: MR knee RT wo con DATE OF EXAM: 11/24/2023 COMPARISON: NONE HISTORY: Internal derangement. Pain with locking and swelling for long time increased in severity aft er fall injury September 26 TECHNIQUE: Multiplanar, multisequence images of the knee is performed without IV contrast. FINDINGS: MEDIAL MENISCUS: Increased signal central body and posterior horn extends to inferior articular surfa ce. LATERAL MENISCUS: Subtle increased signal central body extends to inferior articular surface near pos terior horn coronal image 24. CRUCIATE LIGAMENTS: The anterior and posterior cruciate ligaments are intact and unremarkable. COLLATERAL LIGAMENTS: The medial collateral ligament and lateral collateral ligament complex are inta ct and unremarkable. EXTENSOR MECHANISM: Visualized quadriceps and patellar tendons are intact. EFFUSION: No significant suprapatellar joint effusion. POPLITEAL CYST: No popliteal/lopez cyst. TRICOMPARTMENT SPACES: Severe narrowing patellofemoral compartment with moderate spurring. Moderate n arrowing medial lateral tibiofemoral compartment with moderate to severe spurring CARTILAGE: Advanced contemplation patella with full-thickness diffuse cartilaginous loss. Some cartil aginous loss medial and lateral tibiofemoral compartments. BONE MARROW SIGNAL: Areas of increased T2 signal involving the posterior patellar pole greatest infer iorly. OTHER: No additional significant abnormality is appreciated. IMPRESSION: 1. Tricompartment degenerative changes that are advanced at the patellofemoral compartment and modera te to advanced elsewhere as detailed above. 2. Full-thickness tear posterior horn of medial meniscus. 3. Full-thickness tear posterior horn of lateral meniscus
== END | disposition home or self-care (01) ==
LOC: RADMRIMAIN 10:27
PROVIDERS: ATTEND Internal Medicine Rheumatology
DX: S83.241A Other tear of medial meniscus, current injury, right knee, initial encounter (principal); M23.91 Unspecified internal derangement of right knee; M17.11 Unilateral primary osteoarthritis, right knee

== ENCOUNTER → 2023-12-28 | Outpatient (CLI) | payer MEDICARE, OTHER ==
--- NOTE | 2023-12-28 12:26 | US ---
EXAMINATION TYPE: US venous doppler duplex LE RT DATE OF EXAM: 12/28/2023 11:19 AM COMPARISON: NONE CLINICAL INDICATION: Female, 73 years old with history of I80.9 RLE PHLEBITIS AND THROMBOPHLEBITIS OF UNSPEC; rt posterior knee/ calf tenderness SIDE PERFORMED: Right TECHNIQUE: The lower extremity deep venous system is examined utilizing real time linear array sonog abdifatah with graded compression, doppler sonography and color-flow sonography. VESSELS IMAGED: Common Femoral Vein Deep Femoral Vein Greater Saphenous Vein * Femoral Vein Popliteal Vein Small Saphenous Vein * Proximal Calf Veins (* superficial vessels) Right Leg: Negative for DVT results communicated to office IMPRESSION: Grayscale, color doppler, spectral doppler imaging performed of the deep veins of the lo wer extremities. There is normal flow, compressibility, vascular waveforms.
== END | disposition home or self-care (01) ==
LOC: RADUSWWP 10:51
PROVIDERS: ATTEND Orthopaedic Surgery
DX: I80.9 Phlebitis and thrombophlebitis of unspecified site (principal); M17.11 Unilateral primary osteoarthritis, right knee; M06.861 Other specified rheumatoid arthritis, right knee; M25.561 Pain in right knee

== ENCOUNTER 2024-01-17 08:06 | Day surgery (SDC) | payer MEDICARE, OTHER ==
[2024-01-15 12:20] VITALS: BMI 22.8
[2024-01-17 08:44] VITALS: TEMP 96.8
[2024-01-17 08:47] LABS: Glucose,Whole Blood 89 mg/dL (70-110)
[2024-01-17] MEDS: LACTATED RINGERS 1,000 ML IV SCH (08:50)
[2024-01-17] MEDS ORDERED: PROPOFOL 10 MG/ML 20 ML VIAL IV ONE (08:56)
[2024-01-17] MEDS ORDERED: LIDOCAINE 1% INJ 10MG/ML (20 ML MDV) ONE (08:56)
--- NOTE | 2024-01-17 09:21 | P.PCN ---
Date of Procedure: 01/17/24 Procedure(s) Performed: Brief history: Patient is a pleasant 73-year-old white femalescheduled for an elective upper endoscopy as well as colonoscopy as a part of evaluation of iron deficiency anemia. History of chronic liver disease with cirrhosis diagnosed 5 years ago. Procedure performed: Esophagogastroduodenoscopy with biopsy Colonoscopy Preoperative diagnosis: iron deficiency anemia Anesthesia: [facility] [place] Procedure: After informed consent was obtained from the patient was brought into the endoscopy unit and IV sedation was administered by anesthesia under continuous monitoring. Initially upper endoscopy was done. The Olympus GF 160 video endoscope was inserted inserted into the mouth and esophagus intubated without any difficulty and was gradually advanced into the stomach and duodenum and carefully examined. The bulb and second part of the duodenum appeared normal.abscesses were done from the duodenum to evaluate for celiac disease The scope was then withdrawn into the stomach adequately insufflated with air and upon careful examination the antrumhad mild diffuse gastritis and biopsies were done from this area. Mucosa of the body, cardia and fundus appeared normal. The scope was then withdrawn into the esophagus. The GE junction was located at 40 cm to the incisors. It appeared regular with no erythema erosions or ulcerations. Rest of the esophagus appeared normal. there were moderate to large mid/distal esophageal varices identified with no red jaye jansen. Patient tolerated the procedure well. At this time the patient continued to remain sedation. Initial digital rectal examination was normal. Olympus CF 160 video colonoscope was then inserted into the rectum and gradually advanced to the cecum without any difficulty. Careful examination was performed as the scope was gradually being withdrawn. The prep was excellent. The cecum, ascending colon, transverse colon, as scattered angiectasia identified with no active bleeding and argon plasma coagulation was performed. Mucosa of thedescending colon, sigmoid colon and rectum appeared normal. Retroflexion was performed in the rectum and no lesions were noted. Patient tolerated the procedure well. Impression: 1. Upper endoscopy revealed mild antral gastritis and moderate to large/distal esophageal varices with no red jaye jansen 2. Colonoscopy revealed scattered angiectasia involving the cecum, ascending colon and a few in the transverse colon with no active bleeding status post argon plasma coagulation Recommendations: Findings of this examination were discussed with the patient as well as her family. She was advised to follow with the biopsy results . Continue with iron supplements. Monitor CBC periodically. Follow up in office in 3-4 weeks.
[2024-01-17 10:12] VITALS: BP 170/85; PULSE 65; RESP 14
== END 2024-01-17 10:17 | disposition home or self-care (01) ==
LOC: ORWHC2ENDO 08:06
PROVIDERS: ATTEND Internal Medicine Gastroenterology
DX: I85.10 Secondary esophageal varices without bleeding (principal); K74.60 Unspecified cirrhosis of liver; K29.50 Unspecified chronic gastritis without bleeding; Z79.899 Other long term (current) drug therapy; I10 Essential (primary) hypertension; E78.5 Hyperlipidemia, unspecified; J45.909 Unspecified asthma, uncomplicated; E11.9 Type 2 diabetes mellitus without complications; E07.9 Disorder of thyroid, unspecified; Z79.890 Hormone replacement therapy; Z98.890 Other specified postprocedural states; Z90.89 Acquired absence of other organs
CPT/HCPCS: 88305; 45378; 43239; J2001; J2704; 45388

== ENCOUNTER → 2024-04-19 | Outpatient (CLI) | payer MEDICARE, OTHER ==
--- NOTE | 2024-04-19 09:33 | US ---
EXAMINATION TYPE: US liver DATE OF EXAM: 04/19/2024 COMPARISON: 11/21/23 CLINICAL INDICATION: Female, 73 years old with history of K74.60 UNSPECIFIED CIRRHOSIS OF LIVER; TECHNIQUE: Multiple sonographic images of the right upper quadrant are obtained. FINDINGS: EXAM MEASUREMENTS: Liver Length: 13.4 cm Gallbladder Wall: 0.22 cm CBD: 0.38 cm Right Kidney: 10.3 x 4.4 x 4.2 cm LAUNDRY ROUTEMAN NOTES: Pancreas: Tail obscured by overlying bowel gas Liver: Slight coarse appearance in echotexture Gallbladder: Mobile stone Evidence for sonographic Prince's sign: No CBD: wnl Right Kidney: wnl IMPRESSION: 1. Cholelithiasis. 2. Mild fatty infiltration liver
== END | disposition home or self-care (01) ==
LOC: RADUSWWP 08:59
PROVIDERS: ATTEND Internal Medicine Gastroenterology
DX: K74.60 Unspecified cirrhosis of liver (principal); K80.20 Calculus of gallbladder without cholecystitis without obstruction; K76.0 Fatty (change of) liver, not elsewhere classified
CPT/HCPCS: 76705

== ENCOUNTER → 2024-07-19 | Outpatient (CLI) | payer MEDICARE, OTHER ==
[2024-07-19 15:52] LABS: ALT 16 U/L (8-44); AST 41 U/L (13-35); Albumin 4.2 g/dL (3.8-4.9); Albumin/Globulin Ratio 1.62 Ratio (1.60-3.17); Alkaline Phosphatase 71 U/L (41-126); BUN/Creat Ratio 22.71 Ratio (12.00-20.00); Blood Urea Nitrogen 31.8 mg/dL (9.0-27.0); Calcium 9.3 mg/dL (8.7-10.3); Carbon Dioxide 22.9 mmol/L (21.6-31.8); Chloride 109 mmol/L (96-109); Globulin 2.6 g/dL (1.6-3.3); Glucose 98 mg/dL (70-110); Sodium 143 mmol/L (135-145); Total Bilirubin 0.4 mg/dL (0.3-1.2); Total Protein 6.8 g/dL (6.2-8.2)
[2024-07-19 16:09] LABS: Basophils # (M) 0 X 10*3/uL (0.00-0.10); Eosinophils # (M) 0.09 X 10*3/uL (0.04-0.35); HCT 34.3 % (37.2-46.3); HGB 11.2 g/dL (12.0-15.0); Immature Platelet Fraction 5.7 % (1.1-6.1); MCH 29.4 pg (27.0-32.0); MCHC 32.7 g/dL (32.0-37.0); Mean Platelet Volume 11.3 FL (9.5-12.2); Microcytosis (M) 2+; Monocytes # (M) 0.11 X 10*3/uL (0.20-1.00); NRBC Per 100 WBC 0 X 10*3/uL (0.00-0.01); Neutrophils # (M) 1.22 X 10*3/uL (1.80-7.70); Neutrophils % (M) 55 %; Platelet Count 55 X 10*3/uL (140-440); RBC 3.81 X 10*6/uL (4.10-5.20); RDW 14.6 % (11.5-14.5); WBC 2.21 X 10*3/uL (4.50-10.00)
== END | disposition home or self-care (01) ==
LOC: LABWHC1 11:48
PROVIDERS: ATTEND Internal Medicine Gastroenterology
DX: K74.60 Unspecified cirrhosis of liver (principal)
CPT/HCPCS: 36415; 80053; 82105; 85025